=== PATIENT | male | born 1955 | race Caucasian/White ===

== ENCOUNTER → 2018-07-06 12:36 | Outpatient (CLI) | payer MEDICAID, SELFPAY ==
[2018-07-05 15:15] VITALS: BMI 24.5
[2018-07-06 12:47] LABS: Bacteria 0 SEEN /hpf (None Seen); Mucous, Urine 0 SEEN /hpf (<or=2+); White Blood Cells 0 SEEN /hpf (0-5)
[2018-07-06 13:59] LABS: Color, Urine Yellow (Yellow); Glucose, Dipstick 1000 mg/dl (Normal); Ketone-Dipstick Negative (Negative); Leukocyte Esterase-Dipstick Negative /ul (Negative); Nitrite-Dipstick Negative (Negative); Occult Blood-Urine 25 /ul (Negative); Protein-Dipstick 15 mg/dl (Negative); Urine Bilirubin Dipstick Negative (Negative); Urine Clarity Clear (Clear); Urine Urobilinogen Normal (Normal)
[2018-07-06 14:06] LABS: Red Blood Cells-Urine 0-5 SEEN /hpf (0-5); Squamous Epithelial Cells - UA 0-5 SEEN /hpf (0-5)
[2018-07-06 14:16] LABS: Erythrocyte Sedimentation Rate 2 mm/hr (0-20)
[2018-07-06 14:21] LABS: Absolute Lymphocyte Count 2.02 X10^3/ul (0.83-4.51); Absolute Neutrophil Count 3.5 X10^3/uL (2.0-7.7); Basophil# 0.05 X10^3/uL; Basophil% 0.8 % (0-1); Eosinophil# 0.06 X10^3/uL; Hematocrit 49.6 % (40-54); Lymphocyte # 2.02 X10^3/ul (4.0); Lymphocyte % 32.2 % (19-41); Mean Corp Hgb Conc 36.3 g/gl (32-36); Mean Corpuscular Hgb 34.8 pg (27.0-32.0); Mean Corpuscular Volume 95.9 fL (80-94); Mean Platelet Vol. 10.9 fl (6.2-12.0); Monocyte# 0.65 X10^3/uL; Monocyte% 10.4 % (0-10); Neutrophil # 3.49 X10^3/uL (2.7-7.7); Neutrophil % 55.4 % (47-70); Platelet Count 167 K/mm3 (150-450); RBC Distribution Width CV 12.1 % (11.6-14.6); RBC Distribution Width SD 41.7 fl (35.1-43.9); Red Blood Count 5.17 M/mm3 (4.6-6.2); White Blood Count 6.3 K/mm3 (4.4-11.0)
[2018-07-06 14:22] LABS: POSITIVE COUNT NO; POSITIVE DIFFERENTIAL NO; POSITIVE MORPHOLOGY NO
[2018-07-06 14:24] LABS: Partial Thromboplast Time 31.1 Seconds (24.1-36.2)
[2018-07-06 14:32] LABS: AST(SGOT) 30 U/L (15-37); Alanine Aminotransfer ALT/SGPT 49 U/L (16-61); Albumin, Serum 4.2 g/dL (3.2-5.0); Alkaline Phosphatase 123 U/L (45-117); Anion Gap 7 (5-15); BUN 9 mg/dL (7-18); BUN/Creat Ratio 11.7 RATIO (10-20); Calcium,Total 8.7 mg/dL (8.5-10.1); Chloride 100 mmol/L (98-107); Creatinine, Serum 0.77 mg/dL (0.70-1.30); EST Glomerular Filtration Rate 109 mL/min (>60); Est Glom Filt Rate - Afr Amer 131 mL/min (>60); Globulin 4.4 g/dL (2.2-4.2); Glucose 142 mg/dL (74-106); Potassium 4.1 mmol/L (3.5-5.1); Protein, Total 8.6 g/dL (6.4-8.2); Sodium Level 136 mmol/L (136-145)
[2018-07-07 20:07] LABS: Free Lambda Light Chains 26.4 mg/L (5.7-26.3); HEPATITIS B SURFACE AG Negative (Negative); Hepatitis B Core AB IgM Negative (Negative); Hepatitis B Core Ab Total Negative (Negative); Hepatitis Be Ab Negative (Negative); Hepatitis Be Ag Negative (Negative); Hepatitis C Ab 0.1 s/co ratio (0.0-0.9); Immunoglobulin A 257 mg/dL (61-437); Immunoglobulin G 1195 mg/dL (700-1600); Immunoglobulin M 483 mg/dL (20-172); PROEL- A/G Ratio 1.2 (0.7-1.7); PROEL- Albumin 4.3 g/dL (2.9-4.4); PROEL- Alpha-1 Globulin 0.2 g/dL (0.0-0.4); PROEL- Alpha-2 Globulin 0.8 g/dL (0.4-1.0); PROEL- Gamma Globulin 1.7 g/dL (0.4-1.8); PROEL- Globulin, Total 3.7 g/dL (2.2-3.9)
[2018-07-08 09:39] LABS: Beta-2-Microglobulin, S 1.6 mg/L (0.6-2.4)
[2018-07-08 09:48] LABS: Hep B Surface Antibodies Non Reactive (.)
== END ==
PROVIDERS: Family Provider Nurse Practitioner; PCP Nurse Practitioner; Referring Provider Internal Medicine Medical Oncology; Visit Provider Internal Medicine Medical Oncology
DX: C88.0 Waldenstrom macroglobulinemia (principal)
CPT/HCPCS: 36415; 80053; 81001; 82232; 82784; 83883; 84165; 85025; 85610; 85652; 85730; 86704; 86705; 86706; 86707; 86803; 87340; 87350

== ENCOUNTER → 2018-07-16 13:54 | Outpatient (CLI) | payer MEDICAID, SELFPAY ==
[2018-07-05 15:15] VITALS: BMI 24.5
--- NOTE | 2018-07-16 13:56 | CT_ITS ---
STUDY: CT ABDOMEN AND PELVIS WITH CONTRAST REASON FOR EXAM: Male, 62 years old. Macroglobulinemia RADIATION DOSAGE (If Supplied By Facility): CTDIvol = ( 16.30 ) mGy, DLP = ( 1954.66 ) mGycm TECHNIQUE: Transaxial images were obtained from the dome of the diaphragm to the symphysis pubis with oral contrast. 100mL ml of Isovue 300 contrast was administered. Sagittal and coronal images were reconstructed. Individualized dose optimization techniques were used for this CT. COMPARISON: None. FINDINGS: 4.5 mm lingula nodule. Coronary artery calcifications. Please see dedicated CT scan of the chest performed at the same time. Subcentimeter low-attenuation structures within the liver are too small to characterize by CT criteria however statistically likely represent cysts or hemangiomas. Cholelithiasis. Normal spleen. Normal pancreas. Normal bilateral adrenal glands. Subcentimeter low-attenuation structures within the kidneys are too small to characterize by CT criteria however statistically likely represent cysts. There is no hydronephrosis identified. There is cortical thinning inferior pole the left kidney which could represent area of scarring possibly from prior pyelonephritis or other etiologies. Normal visualized stomach. Normal small intestine. There are multiple colonic diverticula consistent with diverticulosis. There is non-visualization of the appendix. There is diffuse atherosclerotic calcification of the abdominal aorta, without a demonstrated aneurysm. Normal inferior vena cava. Nonspecific subcentimeter short axis mesenteric and retroperitoneal lymph nodes. There is a 6 x 4.6 x 2.5 cm low-attenuation structure within the mesentery on the left image 61/127 axial. Normal urinary bladder. Prostate is somewhat heterogeneous with calcifications. Consider correlation with PSA values and physical exam on a nonemergent basis. Normal abdominal wall. There are diffuse degenerative changes of the visualized lumbar spine. Healing fracture posterior left ninth rib. CT/Abdomen/Pelvis WITH Contrast IMPRESSION: Lingula nodule recommend 6 month follow-up CT can. Hyperdense structures within the gallbladder which could represent cholelithiasis. Recommend ultrasound to further evaluate on a nonemergent basis. No gallbladder wall thickening or surrounding fluid identified to suggest acute cholecystitis time. Subcentimeter low-attenuation structures within the liver and kidneys as discussed above. There is nonspecific subcentimeter short axis lymph nodes within the abdomen and pelvis. There is a low-attenuation structure seen within the mesentery on the left with slight displacement of the adjacent vessels. Unknown clinical significance. There is no significant enhancement identified. Recommend comparison to prior studies for stability. If no prior studies are available consider additional imaging to further evaluate. Electronically Signed: Abram Lorenz, at 5:37 EST Tel , Service support ,
--- NOTE | 2018-07-16 13:56 | CT_ITS ---
STUDY: CT SOFT TISSUE NECK WITH CONTRAST REASON FOR EXAM: Male, 62 years old. Waldenstrom macroglobulinemia Evaluate for non-Hodgkin's lymphoma. RADIATION DOSAGE (If Supplied By Facility): CTDIvol = ( 16.30 ) mGy, DLP = ( 1954.66 ) mGycm TECHNIQUE: The patient was scanned in a multi-detector CT scanner. High resolution transaxial imaging was performed following intravenous administration of 100mL ml of Isovue 300 contrast material. Sagittal and coronal images were reconstructed. Individualized dose optimization techniques were used for this CT. COMPARISON: None. FINDINGS: Normal bilateral parotid glands. Normal bilateral electrostatic powder coating technician spaces. Normal bilateral parapharyngeal spaces. Normal bilateral carotid spaces. Normal bilateral sublingual and submandibular glands and spaces. Normal visualized nasopharynx. Normal retropharyngeal space. Normal perivertebral space. Normal visualized bilateral faucial tonsils. The visualized tongue, tongue base and oropharynx are normal. There are bilateral submandibular benign-appearing lymph nodes with fatty centers on the left side for example measuring 9.6 mm image #57 axial image. There is no demonstrated solid or cystic mass lesion. There is no abnormal contrast enhancement. Normal epiglottis, bilateral vallecula and hypopharynx. The pre-epiglottic and paraglottic adipose spaces are normal. Normal visualized bilateral piriform sinuses, aryepiglottic folds, vocal cords, and arytenoid-cricoid articulations. Normal subglottic trachea. Normal bilateral lobes of the thyroid gland. Normal visualized pulmonary apices. Normal visualized paranasal sinuses. There is degenerative change in the cervical spine C4 C5 C5 C6 C6 C7 there is disc space narrowing. There is posterior spondylosis broad disc osteophyte complex C5-C6 and C6-C7 with moderate neural foramina narrowing and mild to moderate central stenosis. Incidental findings: With contrast there is visualization of the galena of [place]. There is absent or hypoplastic or potentially stenotic right A1 segment. The right side a 2 segment appears to extend from the left side. There is a prominent appearance of the confluence tip of the basilar artery. CT/Soft Tissue Neck WITH Contrast IMPRESSION: No evidence of suspicious lymphadenopathy. Incidental findings: With contrast there is visualization of the galena of [place]. There is absent or hypoplastic or versus potentially stenotic right A1 segment. The right side A2 segment appears to extend from the left side, this is a common variant. There is a mildly prominent appearance of the confluence of the tip of the basilar artery the takeoff of the posterior cerebral arteries. Recommend consideration for routine follow-up MRI/MRA when clinically appropriate. Electronically Signed: Maribell Churchill MD at 15:31 EST Tel , Service support ,
--- NOTE | 2018-07-16 13:56 | CT_ITS ---
STUDY: CT CHEST WITH CONTRAST REASON FOR EXAM: Male, 62 years old. Macroglobulinemia RADIATION DOSAGE (If Supplied By Facility): CTDIvol = ( 16.30 ) mGy, DLP = ( 1954.66 ) mGycm TECHNIQUE: Transaxial imaging was performed following intravenous administration of 100mL ml of Isovue 300 contrast material. Individualized dose optimization techniques were used for this CT. COMPARISON: None. FINDINGS: 4.5 mm lingular pulmonary nodule. There is atelectasis/scarring within the lungs. No focal consolidation. There is no demonstrated pleural abnormality. Normal heart and pericardium. Coronary artery calcifications. Nonspecific subcentimeter short axis mediastinal and hilar lymph nodes. There is atherosclerotic disease of the aorta. There is ectasia of the ascending thoracic aorta 3.8 cm. No dissection identified. Evaluation for pulmonary embolism is limited by bolus timing. There is no pulmonary embolism seen within the main pulmonary artery or right and left Main pulmonary arteries. Further evaluation is limited. The great vessels appear patent. The thyroid appears grossly unremarkable. There are multi-level degenerative changes of the thoracic spine. T5 intervertebral body hemangioma. Healing posterior left ninth rib fracture. Please see dedicated CT abdomen and pelvis performed at the same time. CT/Chest WITH Contrast IMPRESSION: Small pulmonary nodule. Recommend comparison to prior studies versus 6 month follow-up CT scanning. Nonspecific mediastinal and hilar subcentimeter short axis lymph nodes. There is no lymphadenopathy by CT criteria. Coronary artery calcifications. Healing posterior left ninth rib fracture. Other findings as discussed above. Electronically Signed: Abram Lorenz, at 5:22 EST Tel , Service support ,
== END ==
PROVIDERS: Family Provider Nurse Practitioner; PCP Nurse Practitioner; Referring Provider Internal Medicine Medical Oncology; Visit Provider Internal Medicine Medical Oncology
DX: C88.0 Waldenstrom macroglobulinemia (principal)
CPT/HCPCS: 70491; 71260; 74177; Q9967

== ENCOUNTER 2018-07-19 08:08 | Day surgery (SDC) | payer MEDICAID, SELFPAY ==
[2018-07-01 14:19] VITALS: BMI 24.5
[2018-07-05 15:15] VITALS: BMI 24.5
[2018-07-19] VITALS (7 sets, daily range): BP systolic 128–144; BP diastolic 80–87; PULSE 63–86; RESP 16–20; TEMP 35.9–36.6; O2SAT 94–98; BMI 24.0
--- NOTE | 2018-07-19 09:15 | COLBX_PTH ---
PATIENT: DANIEL MCLEAN LOC: EN U#:[id number] AGE/SX: 62/M ROOM: RE07/19/[address]: Dr. Joni Mercado MD : 1955 BED: DIS: 07/19/2018 SPEC #: [id number] RECD: 07/19/18 10:30 STATUS: [place] SUNIL #: [id number] YAKELIN: 07/19/18 09:[address]: Joni Mercado DEPT: SURGICAL PATHOLOGY RECD BY: Ed Salinas ENTERED: 07/19/18 11:14 SP TYPE: COLON BX OTHR DR: Jessica Horton, BEN-Pascual Tissues: A - Gastric mucous membrane B - Gastric mucous membrane C - Transverse colon D - Transverse colon E - Transverse colon F - Sigmoid colon biopsy Procedures: Surgery Specimen Level IV HEADER OPERATION: Colonoscopy, EGD ([facility] [place]) PRE-OP DIAGNOSIS: Positive colorectal cancer screening TISSUE SUBMITTED: A - Gastric biopsy, B - Gastric polyp biopsy, C - Transverse colon polyp, D - Proximal descending transverse colon polyp, E - Distal transverse colon polyp, F - Proximal sigmoid colon polyp MICROSCOPIC DIAGNOSIS A. Gastric mucosa, biopsy: Small bowel mucosa with focal gastric metaplasia, mildly inflamed. No evidence of dysplasia. B. Gastric polyp, biopsy: Suggestive of fundic gland polyp. C. Transverse colon polyp, biopsy: Tubular adenoma. D. Proximal descending/transverse colon polyp, biopsy: Tubular adenoma. E. Distal transverse colon polyp, biopsy: Fragments of tubular adenoma. F. Proximal sigmoid colon polyp, biopsy: Fragments of tubular adenoma. AM:puneet 07/20/18 MICROSCOPIC DESCRIPTION Slides are reviewed. GROSS DESCRIPTION A - Received in fixative is one container labeled with the patient's name and designated gastric biopsy. The specimen consists of one irregular fragment of light law soft tissue that measures 0.2 x 0.2 x 0.1 cm. The specimen is totally submitted in one cassette. B - Received in fixative is one container labeled with the patient's name and designated gastric polyp. The specimen consists of two irregular fragments of light law soft tissue that in aggregate measure 0.3 x 0.3 x 0.1 cm. The specimen is totally submitted in one cassette. C - Received in fixative is one container labeled with the patient's name and designated transverse colon polyp. The specimen consists of one irregular fragment of light law soft tissue that measures 0.6 x 0.5 x 0.2 cm. The specimen is totally submitted in one cassette. D - Received in fixative is one container labeled with the patient's name and designated proximal transverse colon polyp. The specimen consists of one irregular fragment of light law soft tissue that measures 0.3 x 0.2 x 0.1 cm. The specimen is totally submitted in one cassette. E - Received in fixative is one container labeled with the patient's name and designated distal transverse polyp. The specimen consists of multiple irregular fragments of light law soft tissue that in aggregate measure 1 x 0.8 x 0.2 cm. The specimen is totally submitted in one cassette. F - Received in fixative is one container labeled with the patient's name and designated proximal sigmoid polyp. The specimen consists of multiple irregular fragments of light law soft tissue that in aggregate measure 1.8 x 0.9 x 0.2 cm. The specimen is totally submitted in one cassette. / AM:puneet 07/19/18 TC:5 CPT: 46324 x6
--- NOTE | 2018-07-19 09:47 | OP.ENDO_ITS ---
Patient Name: Lior Perez Procedure Date: 07/19/2018 9:03 AM Date of : 1955 Age: 62 Procedure: Upper GI endoscopy Indications: positive cologuard test Providers: Joni Mercado MD Medicines: See the Anesthesia note for documentation of the administered medications Patient Profile: This is a 62 year old male. Refer to note in patient chart for documentation of history and physical. Complications: No immediate complications. Procedure: Pre-Anesthesia Assessment: - Prior to the procedure, a History and Physical was performed, and patient medications and allergies were reviewed. The patient's tolerance of previous anesthesia was also reviewed. The risks and benefits of the procedure and the sedation options and risks were discussed with the patient. All questions were answered, and informed consent was obtained. Prior Anticoagulants: The patient has taken no previous anticoagulant or antiplatelet agents. ASA Grade Assessment: II - A patient with mild systemic disease. After reviewing the risks and benefits, the patient was deemed in satisfactory condition to undergo the procedure. After obtaining informed consent, the endoscope was passed under direct vision. Throughout the procedure, the patient's blood pressure, pulse, and oxygen saturations were monitored continuously. The gastroscope was introduced through the mouth, and advanced to the second part of duodenum. The upper GI endoscopy was accomplished without difficulty. The patient tolerated the procedure well. Scope In: 9:11:21 AM Scope Out: 9:14:49 AM Total Procedure Duration Time 0 hours 3 minutes 28 seconds Findings: The examined esophagus was normal. One 5 mm sessile polyp with no bleeding and no stigmata of recent bleeding was found on the greater curvature of the stomach. The polyp was removed with a jumbo cold forceps. Resection and retrieval were complete. Biopsies were taken with a cold forceps for Helicobacter pylori testing. A single 5 mm angiodysplastic lesion without bleeding was found in the duodenal bulb. Biopsies were taken with a cold forceps for histology. Verification of patient identification for the specimen was done. The exam was otherwise without abnormality. Impression: - Normal esophagus. - One gastric polyp. Resected and retrieved. Biopsied. - A single non-bleeding angiodysplastic lesion in the duodenum. Biopsied. - The examination was otherwise normal. Recommendation: - Await pathology results. - Repeat upper endoscopy at appointment to be scheduled for surveillance. - Return to my office in 2 weeks. - Continue present medications. Procedure Code(s): --- Professional --- 69047, Esophagogastroduodenoscopy, flexible, transoral; with biopsy, single or multiple Diagnosis Code(s): --- Professional --- K31.7, Polyp of stomach and duodenum K31.819, Angiodysplasia of stomach and duodenum without bleeding CPT copyright 2017 [employer]. All rights reserved. The codes documented in this report are preliminary and upon order tracer review may be revised to meet current compliance requirements. MD Joni Singh MD 07/19/2018 9:47:30 AM This report has been signed electronically. Number of Addenda: 0 Note Initiated On: 07/19/2018 9:03 AM
--- NOTE | 2018-07-19 09:51 | OP.ENDO_ITS ---
Patient Name: Lior Perez Procedure Date: 07/19/2018 9:15 AM Date of : 1955 Age: 62 Procedure: Colonoscopy Indications: Positive Cologuard test Providers: Joni Mercado MD Medicines: See the Anesthesia note for documentation of the administered medications Patient Profile: This is a 62 year old male. Refer to note in patient chart for documentation of history and physical. Last Colonoscopy: none. The patient's first colonoscopy is today. Complications: No immediate complications. Procedure: Pre-Anesthesia Assessment: - Prior to the procedure, a History and Physical was performed, and patient medications and allergies were reviewed. The patient's tolerance of previous anesthesia was also reviewed. The risks and benefits of the procedure and the sedation options and risks were discussed with the patient. All questions were answered, and informed consent was obtained. Prior Anticoagulants: The patient has taken no previous anticoagulant or antiplatelet agents. ASA Grade Assessment: II - A patient with mild systemic disease. After reviewing the risks and benefits, the patient was deemed in satisfactory condition to undergo the procedure. After I obtained informed consent, the scope was passed under direct vision. Throughout the procedure, the patient's blood pressure, pulse, and oxygen saturations were monitored continuously. The colonoscope was introduced through the anus and advanced to 3 cm into the ileum. The colonoscopy was performed without difficulty. The patient tolerated the procedure well. The quality of the bowel preparation was good. Scope In: 9:17:17 AM Scope Withdrawal Time 0 hours 13 minutes 45 seconds Scope Out: 9:40:51 AM Total Procedure Duration Time 0 hours 23 minutes 34 seconds Findings: Five sessile polyps were found in the proximal sigmoid colon, proximal descending colon, proximal transverse colon and distal transverse colon. The polyps were 2 to 6 mm in size. These polyps were removed with a hot snare. Resection and retrieval were complete. Multiple small-mouthed diverticula were found in the sigmoid colon. Non-bleeding internal hemorrhoids were found during retroflexion. The hemorrhoids were mild and small. The exam was otherwise without abnormality. Impression: - Five 2 to 6 mm polyps in the proximal sigmoid colon, in the proximal descending colon, in the proximal transverse colon and in the distal transverse colon, removed with a hot snare. Resected and retrieved. - Diverticulosis in the sigmoid colon. - Non-bleeding internal hemorrhoids. - The examination was otherwise normal. Recommendation: - Discharge patient to home. - Resume previous diet. - Continue present medications. - Await pathology results. - Repeat colonoscopy in 1 year for surveillance. - Return to my office in 2 weeks. Procedure Code(s): --- Professional --- 79940, Colonoscopy, flexible; with removal of tumor(s), polyp(s), or other lesion(s) by snare technique Diagnosis Code(s): --- Professional --- D12.5, Benign neoplasm of sigmoid colon D12.4, Benign neoplasm of descending colon D12.3, Benign neoplasm of transverse colon (hepatic flexure or splenic flexure) K64.8, Other hemorrhoids R19.5, Other fecal abnormalities K57.30, Diverticulosis of large intestine without perforation or abscess without bleeding CPT copyright 2017 [employer]. All rights reserved. The codes documented in this report are preliminary and upon senior payroll manager review may be revised to meet current compliance requirements. MD Joni Singh MD 07/19/2018 9:50:54 AM This report has been signed electronically. Number of Addenda: 0 Note Initiated On: 07/19/2018 9:15 AM
== END 2018-07-19 11:20 | disposition home or self-care (01) ==
LOC: EN 08:08 → AC 08:09
PROVIDERS: Family Provider Nurse Practitioner; PCP Nurse Practitioner; Referring Provider Surgery; Visit Provider Surgery
PROC: 0DJD8ZZ Inspection of Lower Intestinal Tract, Via Natural or Artificial Opening Endoscopic (ICD-10-PCS; CPT 45378; principal; 2018-07-19 09:10)
DX: D12.5 Benign neoplasm of sigmoid colon (principal); D12.4 Benign neoplasm of descending colon; R19.5 Other fecal abnormalities; D12.3 Benign neoplasm of transverse colon; K64.8 Other hemorrhoids; K57.30 Diverticulosis of large intestine without perforation or abscess without bleeding; J44.9 Chronic obstructive pulmonary disease, unspecified; I10 Essential (primary) hypertension; F17.200 Nicotine dependence, unspecified, uncomplicated
CPT/HCPCS: 45385; 88305; J7120; J1610

== ENCOUNTER → 2018-08-03 08:02 | Outpatient (CLI) | payer MEDICAID, SELFPAY ==
[2018-07-22 11:24] VITALS: BMI 25.0
[2018-08-03 08:30] LABS: Base Excess -3 mmol/L (-2 to +2); Bicarbonate 22.2 mmol/L (22-26); Blood Gas Specimen Type ART; O2 Delivery Device Room Air; PO2 73 mmHG (75-100); SITE R Radial; SO2 94 % (95-99); Time Given 822; Total Carbon Dioxide 23 mmol/L; pCO2 37.9 mmHg (35-45); pH 7.38 (7.35-7.45)
--- NOTE | 2018-08-03 14:13 | PFT ---
INTRODUCTION: The patient is a 62-year-old male that presents for pulmonary function studies secondary to a diagnosis of mesenteric mass. Respiratory therapy reports good patient effort. Bronchodilators were used during testing. INTERPRETATION: Forced expiration spirometry demonstrates the presence of a severe large airways obstructive ventilatory defect. There was a significant response to aerosolized bronchodilators noted. Spirograms are of good quality and do not plateau indicating slow emptying of the lungs. Body plethysmography was performed and reveals an elevated RV to 133% of predicted, indicative of underlying air trapping. Diffusing capacity by single breath CO is within normal limits at 84% of predicted. IMPRESSION: These pulmonary function studies demonstrate the presence of a partially reversible severe large airways obstructive ventilatory defect with associated air trapping. There are no previous pulmonary function studies available for comparison.
== END ==
PROVIDERS: Family Provider Nurse Practitioner; PCP Nurse Practitioner; Referring Provider Internal Medicine Medical Oncology; Visit Provider Internal Medicine Medical Oncology
DX: D75.1 Secondary polycythemia (principal); R19.07 Generalized intra-abdominal and pelvic swelling, mass and lump
CPT/HCPCS: 36600; 82803; 94060; 94726; 94729

== ENCOUNTER → 2019-05-16 10:26 | Outpatient (CLI) | payer MEDICAID, SELFPAY ==
[2018-10-21 14:47] VITALS: BMI 24.3
[2019-05-16 11:59] LABS: AST(SGOT) 47 U/L (15-37); Alanine Aminotransfer ALT/SGPT 39 U/L (16-61); Albumin, Serum 3.7 g/dL (3.2-5.0); Alkaline Phosphatase 93 U/L (45-117); Anion Gap 8 (5-15); BUN 5 mg/dL (7-18); BUN/Creat Ratio 5.7 RATIO (10-20); Calcium,Total 8.3 mg/dL (8.5-10.1); Chloride 105 mmol/L (98-107); Cholesterol 165 mg/dL (200); Creatinine, Serum 0.88 mg/dL (0.70-1.30); EST Glomerular Filtration Rate 92 mL/min (>60); Est Glom Filt Rate - Afr Amer 112 mL/min (>60); Globulin 3.8 g/dL (2.2-4.2); Glucose 147 mg/dL (74-106); High Density Lipoprotein 33 mg/dL; PSA,Total - Annual Screen 0.87 ng/mL (0.00-4.00); Potassium 4.1 mmol/L (3.5-5.1); Protein, Total 7.5 g/dL (6.4-8.2); Sodium Level 140 mmol/L (136-145); Thyroid Stim Hormone (TSH) 1.09 uIU/mL (0.358-3.74); Triglycerides 300 mg/dL; Very Low Density Lipoprotein 60 mg/dL (5-40)
== END ==
PROVIDERS: Family Provider Nurse Practitioner; PCP Nurse Practitioner; Referring Provider Nurse Practitioner; Visit Provider Nurse Practitioner
DX: I25.10 Atherosclerotic heart disease of native coronary artery without angina pectoris (principal); R03.0 Elevated blood-pressure reading, without diagnosis of hypertension; Z12.5 Encounter for screening for malignant neoplasm of prostate
CPT/HCPCS: 36415; 80053; 80061; 84153; 84443; G0103

== ENCOUNTER → 2022-12-16 | Outpatient (CLI) | payer MEDICARE, MEDICAID, SELFPAY ==
--- NOTE | 2022-12-16 14:27 | CT_ITS ---
INDICATION: Lung nodule EXAMINATION: CT CHEST WITHOUT CONTRAST - CT Chest W/O Contrast Injection TECHNIQUE: Helically acquired images were obtained of the chest. A radiation dose optimization technique was used for this scan. IV Contrast dosage and agent: None. RADIATION DOSAGE (If Supplied By Facility): CTDIvol = ( 17.66 ) mGy, DLP = ( 1381.17 ) mGycm COMPARISON: Prior CT scan of the chest of 07/16/2018. FINDINGS: LUNGS, PLEURA AND LARGE AIRWAYS: 5 mm nodule in the region of the lingula seen on axial image 77 series 4 probably unchanged. No new nodules are seen. Mild atelectasis or scarring in the lingula. No focal infiltrate is seen. No pleural effusion or thickening. No pneumothorax. THYROID: No thyroid lesions. HEART AND PERICARDIUM: Heart size is normal. No pericardial effusion. CORONARY ARTERIES: Coronary artery calcification are seen. VESSELS: Borderline to mild aneurysmal ascending thoracic aorta measuring up to 4 cm in AP diameter. Atherosclerotic calcifications and tortuosity of the thoracic aorta. MEDIASTINUM AND MEG: No mediastinal or hilar adenopathy. Esophagus is unremarkable. No hiatal hernia. UPPER ABDOMEN: No acute pathology. BONES: Degenerative changes of the thoracic spine. CT/Chest without Contrast IMPRESSION: 1. 5 mm nodule in the region of the lingula for which continued routine screening in 1 year is recommended. (Lung-RADS category 2, benign. 2. Otherwise no mass, adenopathy or focal acute pulmonary infiltrate. Electronically Signed: Paul Dubois MD at 10:03 EDT ,
--- NOTE | 2022-12-16 14:27 | CT_ITS ---
STUDY: CT ABDOMEN AND PELVIS WITH CONTRAST - URINARY TRACT REASON FOR EXAM: Male, 67 years old. Mesenteric mass, FU imaging RADIATION DOSAGE (If Supplied By Facility): CTDIvol = ( 17.66 ) mGy, DLP = ( 1381.17 ) mGycm TECHNIQUE: Oral and amp; IV Gastrografin and amp; 100mL Isovue-370 was administered. Transaxial images were obtained from the dome of the diaphragm to the symphysis pubis in the arterial, nephrographic and excretory phases. Multiplanar coronal and sagittal images were reformatted. Individualized Dose Optimization Techniques Were Used For This CT. COMPARISON: Prior CT scan of the abdomen and pelvis of 07/16/2018. FINDINGS: The visualized lung bases are unremarkable. The visualized portions of the heart are within normal limits. Patchy hepatic steatosis particularly in the right lobe. Small cysts left lobe of the liver unchanged. Normal gallbladder and extrahepatic biliary system. Normal spleen. Normal pancreas. Normal bilateral adrenal glands. Normal visualized stomach. Normal small intestine. Sigmoid diverticulosis without evidence of acute diverticulitis. There is non-visualization of the appendix. There is diffuse atherosclerotic calcification of the abdominal aorta, without a demonstrated aneurysm. Somewhat septated 5.5 x 3.7 x 3.6 cm mesenteric mass on the left side of the mid abdomen unchanged or slightly decreased in size is previous exam. Adjacent small calcification could be dystrophic. No evidence of retroperitoneal adenopathy. Normal right kidney. Mild scarring in the lower pole of the left kidney. No evidence of hydronephrosis. Normal urinary bladder. Slightly prominent prostate with calcifications. No pelvic mass. Very small umbilical hernia containing fat. Mild degenerative changes of the spine. CT/Abdomen/Pelvis WITH Contrast IMPRESSION: 1. Hypodense mesenteric mass as described above unchanged or slightly decreased in size since previous exam. The stability of the mass is consistent with a benign process. Previous PET scan was negative. 2. Otherwise no focal acute inflammatory process. 3. Hepatic steatosis. 4. Sigmoid diverticulosis without evidence of acute diverticulitis. Electronically Signed: Paul Dubois MD at 10:21 EDT ,
[2022-12-16 15:03] LABS: CREATININE FINGERSTICK < 0.9 mg/dL (0.70-1.30); EGFR FINGERSTICK > 60.0000 mL/min (>60)
== END | disposition home or self-care (01) ==
PROVIDERS: PCP Nurse Practitioner; Referring Provider Nurse Practitioner Family; Visit Provider Nurse Practitioner Family
DX: R91.1 Solitary pulmonary nodule (principal); K63.89 Other specified diseases of intestine
CPT/HCPCS: 71250; 74177; Q9967